=== PATIENT | female | born 1990 | race Caucasian/White ===

== ENCOUNTER 2018-01-10 13:09 | Emergency (ER) | payer OTHER ==
[~2018-01-10] VITALS: Ht 157.5 cm; Wt 61.2 kg
[2018-01-10] MEDS ORDERED: EPINEPHRINE HCL INJ 1 MG/ML AMP IM ONE (13:45)
[2018-01-10] MEDS ORDERED: EPINEPHRINE 11 MG/ML IM (16:38)
[2018-01-10] MEDS ORDERED: PREDNISONE20 MG PO (16:38)
[2018-01-10] MEDS ORDERED: PEPCID20 MG PO (16:38)
[2018-01-10] MEDS ORDERED: BENADRYL25 M1 PO (16:38)
[2018-01-10 17:26] VITALS: BP 132/76
== END 2018-01-10 16:46 | disposition home or self-care (01) ==
LOC: FSED 13:09
DX: L50.0 Allergic urticaria (principal); T63.464A Toxic effect of venom of wasps, undetermined, initial encounter
CPT/HCPCS: 96372; 99283; J0171